=== PATIENT | male | born 1950 | race African-American/Black ===

== ENCOUNTER 2017-03-23 07:53 | Day surgery (SDC) | payer OTHER ==
[2017-03-23] MEDS ORDERED: diphenhydrAMINE 25 MG CAP PO ONE ×2 (07:58→08:40)
[2017-03-23] MEDS ORDERED: NS 1,000 ML IV ONE (07:58)
[2017-03-23] MEDS ORDERED: ASPIRIN EC 325 MG TAB PO ONE ×2 (07:58→08:41)
[2017-03-23] MEDS ORDERED: DIAZEPAM 5 MG TAB PO ONE (07:58)
[2017-03-23] MEDS ORDERED: FAMOTIDINE 20 MG TAB PO ONE (07:58)
--- NOTE | 2017-03-23 08:23 | CPEKG ---
Heart Rate: 66 RR Interval: 909 P-R Interval: 172 QRSD Interval: 88 QT Interval: 416 QTC Interval: 436 P Jenks: 60 QRS Jenks: -38 T Wave Jenks: 51 EKG Severity - ABNORMAL ECG - EKG Impression: SINUS RHYTHM EKG Impression: PROBABLE INFERIOR INFARCT, OLD Electronically Signed By: Darrell Pike 23-Mar-2017 14:18:40
[2017-03-23 08:39] LABS: % IMMATURE GRANULYOCYTES 0.2 % (0.0-1.1); ABSOLUTE IMMATURE GRANULOCYTES 0.01 10^3/uL (0.00-0.10); ADD DIFF? NO; ADD MORPH? YES; ADD SCAN? NO; ATYPICAL LYMPHOCYTE FLAG 10 (0-99); FRAGMENT RBC FLAG 20 (0-99); HEMATOCRIT 43.2 % (40.0-51.0); HEMOGLOBIN 13.5 g/dL (13.7-17.5); LEFT SHIFT FLG 0 (0-99); LIPEMIA HEMOLYSIS FLAG 80 (0-99); MEAN CELL HEMOGLOBIN 19.5 pg (27.9-34.1); MEAN CELL HEMOGLOBIN CONCENTR. 31.3 g/dL (32.4-36.7); MEAN PLATELET VOLUME 10.8 fL (8.7-11.7); PLATELET CLUMPS FLAG 10 (0-99); PLATELET COUNT 222 10^3/uL (150-400); RED BLOOD CELL COUNT 6.91 10^6/uL (4.40-6.38); RED CELL DISTRIBUTION WIDTH 17.3 % (11.5-15.2)
[2017-03-23] MEDS ORDERED: FAMOTIDINE 20 MG TAB ONE (08:40)
[2017-03-23] MEDS ORDERED: DIAZEPAM 5 MG TAB ONE (08:41)
[2017-03-23 08:46] LABS: MEAN CELL VOLUME 62.5 fL (81.5-99.8)
[2017-03-23 08:54] LABS: INR 1.04 (0.83-1.16); PROTIME(PATIENT) 13.5 SEC (12.0-15.0)
[2017-03-23 09:01] LABS: ANION GAP 17 mEq/L (8-16); CALCIUM 9.7 mg/dL (8.5-10.4); CARBON DIOXIDE 25 mEq/l (22-31); CHLORIDE 97 mEq/L (97-110); CHOLESTEROL 147 mg/dL (140-220); CHOLESTEROL/HDL RATIO 2.58 RATIO (1.00-4.97); CREATININE 1.6 mg/dL (0.7-1.3); GLOMERULAR FILTRATION RATE 44; GLUCOSE 113 mg/dL (70-100); HIGH DENSITY LIPOPROTEIN 57 mg/dL (40-65); LDL/HDL RATIO 1.37 RATIO (1.00-3.64); LOW DENSITY LIPOPROTEIN 78 mg/dL (80-100); MAGNESIUM 1.4 mg/dL (1.6-2.3); NON-HIGH DENSITY LIPOPROTEIN 90 mg/dL (90-129); POTASSIUM 3.8 mEq/L (3.5-5.2); SODIUM 139 mEq/L (134-144); TRIGLYCERIDE 60 mg/dL (40-150); VERY LOW DENSITY LIPOPROTEINS 12 mg/dL (8-25)
[2017-03-23] MEDS ORDERED: LIDOCAINE 1% 300 MG/30 ML SDV ONE (09:31)
[2017-03-23] MEDS ORDERED: fentaNYL 100 MCG/2 ML INJ ONE (09:31)
[2017-03-23] MEDS ORDERED: MIDAZOLAM 2 MG/2 ML VIAL ONE (09:31)
[2017-03-23] MEDS ORDERED: IOPAMIDOL (ISOVUE-370) 150 ML BTL IV ONE (09:32)
[2017-03-23] MEDS ORDERED: VERAPAMIL 5 MG/2 ML VIAL ONE (09:32)
[2017-03-23] MEDS ORDERED: HEPARIN 10,000 UNIT/10 ML MDV ONE (09:32)
[2017-03-23 09:52] LABS: HYPOCHROMIA 3+; MICROCYTES 3+; PLATELET ESTIMATE ADEQUATE (ADEQ); SCHISTOCYTES 1+
--- NOTE | 2017-03-23 10:46 | PDDXCAT ---
Diagnostic Cath Note - . Date: 03/23/17 Insurance Sales Assistant: Drake Indication: other (CAD with prior PCI of the LAD, chest pain, and abnormal stress test.) - Procedure Access: right wrist Procedure: left heart catheterization, coronary angiography, left ventriculogram - Materials Left Heart Cath size: 5F Left Heart Cath materials: JL3.5, pigtail, other ([employer]) - Findings-Left Heart Catheterization LM: Normal. LAD: Fluoroscopy reveals a lengthy segment of previously placed stents spanning from the proximal to mid-LAD; angiography revealed that the previously stented segment is patent without significant restenosis; moderate ostial stenosis of the third diagonal branch. LCX: Mild to moderate irregularities of the proximal to mid-circumflex. RCA: Proximal 30-40% stenosis; otherwise mild irregularities of the mid and distal RCA; ostial 80% stenosis of a small posterolateral branch. EDP: 19 mmHg LVEF: 60% Wall motion: Normal. Complications: None Estimated blood loss: <50ml Closure method: TR Band Assessment: 1) Normal LV systolic function. 2) Patent LAD stents from 2007. 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 Plan: Continued medical management and secondary prevention. Patient Problems: Problems Problem Status Onset Angina pectoris Acute Hypoglycemia Acute
== END 2017-03-23 14:30 | disposition home or self-care (01) ==
LOC: FCATH 07:53
PROVIDERS: ATTEND Internal Medicine Interventional Cardiology
PROC: B2111ZZ Fluoroscopy of Multiple Coronary Arteries using Low Osmolar Contrast (ICD-10-PCS; principal; 2017-03-23)
PROC: 4A023N7 Measurement of Cardiac Sampling and Pressure, Left Heart, Percutaneous Approach (ICD-10-PCS; principal; 2017-03-23)
PROC: B2161ZZ Fluoroscopy of Right and Left Heart using Low Osmolar Contrast (ICD-10-PCS; principal; 2017-03-23)
DX: I25.10 Atherosclerotic heart disease of native coronary artery without angina pectoris (principal); R07.9 Chest pain, unspecified; N18.3 Chronic kidney disease, stage 3 (moderate); I12.9 Hypertensive chronic kidney disease with stage 1 through stage 4 chronic kidney disease, or unspecified chronic kidney disease; E11.22 Type 2 diabetes mellitus with diabetic chronic kidney disease; I25.2 Old myocardial infarction; N40.0 Benign prostatic hyperplasia without lower urinary tract symptoms; E78.5 Hyperlipidemia, unspecified; Z95.5 Presence of coronary angioplasty implant and graft
CPT/HCPCS: 93005; 93458; C1769; J1644; J2250; J3010; Q9967